=== PATIENT | male | born 1980 | race Asian ===

== ENCOUNTER 2016-06-10 09:21 | Emergency (ER) | payer MEDICAID ==
[~2016-06-10] VITALS: Wt 68.1 kg
[~2016-06-10 09:21] MED LIST: AUG875 PO; AZIT250T94 PO; D-ME118S6 PO; HYDR-2086 PO; IBUP-1542 PO; IBUP800T25 PO; MAG-19 PO; OMEP20CA9 PO; PRED20TA PO; PROM5SYR2 PO
--- NOTE | 2016-06-10 10:58 | RADRPT ---
PROCEDURE: CT Head without. CLINICAL INDICATION: Headache. TECHNIQUE: The study was performed utilizing a multi-slice, multidetector CT scanner. Direct spira l 1 mm axial sections were obtained through the head without the use of intravenous contrast materia l. Coronal and sagittal reformations were obtained. The images were reviewed on a PACS workstation. RADIATION DOSE: CTDIvol: 44.7 mGyDLP: 720.2 mGy-cm COMPARISON: No prior studies are available for comparison. FINDINGS: There is no intracranial hemorrhage, extra-axial fluid collection, mass lesion, midline shift or hyd rocephalus. The ventricles, sulci and cisterns are within normal limits. The white matter is unrem arkable. The abdullahi-white matter differentiation is preserved. The basal cisterns are patent. The m idline structures are intact. The orbits, calvarium and extracranial soft tissues are normal in [place] earance. The visualized paranasal sinuses, mastoid air cells and middle ear cavities are normally ae rated. IMPRESSION: 1. No acute intracranial abnormality. No intracranial hemorrhage, extra-axial fluid collection, ma ss lesion or hydrocephalous. RPTAT: DD .Wolf Horne MD, MD Date Time Electronically viewed and signed by .Wolf Horne MD, on 06/10/2016 10:58 .S/
[2016-06-10] MEDS ORDERED: IBUP-1542 PO (11:10)
[2016-06-10] MEDS ORDERED: FIORICET PO (11:10)
--- NOTE | 2016-06-10 11:14 | ERD ---
ER Documentation Chief Complaint Date/Time DATE: 06/10/16 TIME: 11:12 Chief Complaint left side headache nontraumatic for the past 3 wks . HPI This 35-year-old male presents with a left-sided headache for last 3 weeks. Denies any history of trauma. Denies any visual changes, vomiting, weakness, bowel or bladder incontinence or any proceeding URIs or additional symptoms. Pain is intermittent and described as 4-10 and dull. There is no radiation. ROS All systems reviewed and are negative except as per history of present illness. Medications Home Meds Active Scripts Acetamin/Butalbital/Caffeine* (Fioricet*) [id number] Tab, 1 TAB PO Q6H Y for PAIN, #14 TAB Prov:VITA ELLIOTT MD 06/10/16 Ibuprofen* (Motrin*) 600 Mg Tab, 600 MG PO Q6, #20 TAB Prov:VITA ELLIOTT MD 06/10/16 Ibuprofen* (Ibuprofen*) 800 Mg Tablet, 800 MG PO Q6H Y for PAIN, #30 TAB Prov:RIGO CELIS PA-C 01/07/16 Promethazine HCl/Codeine (Prometh-Codein 6.25-10 mg/5 ml) 5 Ml Syrup, 5 ML PO Q6 , #60 Prov:RIGO CELIS PA-C 01/07/16 Omeprazole* (Prilosec*) 20 Mg Capsule.dr, 20 MG PO DAILY, #30 CAP Prov:REINIER RAMOS NP 12/12/15 Magaldrate/Simethicone* (Mylanta*) 355 Ml Susp, 30 ML PO QID Y for GASTROINTESTINAL UPSET, #1 BOTTLE Prov:REINIER RAMOS NP 12/12/15 Ibuprofen* (Ibuprofen*) 600 Mg Tablet, 600 MG PO Q6, #14 TAB Prov:VITA ELLIOTT MD 09/24/15 Azithromycin* (Zithromax*) 250 Mg Tablet, 250 MG PO .ZPACK DIRECTED, #6 TAB TAKE 500 MG (2 TABS) THE FIRST DAY THEN 250 MG (1 TAB) DAYS 2-5 Prov:VITA ELLIOTT MD 09/24/15 Prednisone* (Prednisone*) 20 Mg Tab, 40 MG PO DAILY for 4 Days, TAB Prov:VITA ELLIOTT MD 09/24/15 Dextromethorphan Hb-Promethazine Hcl (Promethazine DM Syrup) 180 Ml Syrup, 5 ML PO Q6H Y for COUGH, #6 OZ Prov:VITA ELLIOTT MD 07/17/15 Ibuprofen* (Motrin*) 600 Mg Tab, 600 MG PO Q6, #14 TAB Prov:VITA ELLIOTT MD 07/17/15 Amoxicillin-Clavulanate K* (Augmentin*) 875 Mg Tab, 875 MG PO BID for 7 Days, TAB Prov:ANIYAH CASTELLANOS PA-C 06/11/15 Reported Medications Hydrocodone Bit-Acetaminophen* (Vicodin*) 5-300 Tab, PO Q4H Y for PAIN, TAB 01/28/14 Allergies Allergies: Coded Allergies: No Known Allergy (Unverified , 01/07/16) PMhx/Soc History of Surgery: No Anesthesia Reaction: No Hx Neurological Disorder: No Hx Respiratory Disorders: No Hx Cardiac Disorders: No Hx Psychiatric Problems: No Hx Miscellaneous Medical Probl: No Hx Alcohol Use: Yes Hx Substance Use: No Hx Tobacco Use: No Smoking Status: Never smoker Physical Exam Vitals Vital Signs Date Time Temp Pulse Resp B/P Pulse Ox O2 Delivery O2 Flow Rate FiO2 06/10/16 09:23 98.8 87 20 140/78 100 Physical Exam Const: [] Alert, [id number] per Head: Atraumatic Eyes: Normal Conjunctiva ENT: Normal External Ears, Nose and Mouth. Neck: Full range of motion..~ No meningismus. Resp: Clear to auscultation bilaterally Cardio: Regular rate and rhythm, no murmurs Abd: Soft, non tender, non distended. Normal bowel sounds Skin: No petechiae or rashes Back: No midline or flank tenderness Ext: No cyanosis, or edema Neur: Awake and alert. Normal gait. Cranial nerves II through XII grossly intact. No appreciable focal neurologic deficits. Psych: Normal Mood and Affect Procedures/MDM Given the uncertain cause of the duration of headache without a previous history of headaches a CT brain was performed which is read as normal by the radiologist. Patient presents with left-sided headache of uncertain etiology. Signs or symptoms not consistent with meningitis, mass-effect, neurologic deficits, intracranial hemorrhage or ischemia. Patient will be treated with Fioricet and ibuprofen and instructions to follow-up with primary doctor return to the ER for new or worsening symptoms. The patient was stable with no new complaints during the ER course. Clinically, there is no current evidence to suggest meningitis, sepsis, acute abdomen, pneumonia, acute coronary syndrome, pulmonary embolism, or any other emergent condition appearing to require further evaluation or hospitalization. The patient should certainly return for any new or worsening symptoms per the aftercare instructions. They should otherwise follow-up with her primary care doctor for reevaluation this week. Departure Diagnosis: Primary Impression: Headache Headache type: unspecified Headache chronicity pattern: unspecified pattern Intractability: not intractable Qualified Code: R51 - Nonintractable headache, unspecified chronicity pattern, unspecified headache type Condition: Stable Patient Instructions: Headache, Unspecified Additional Instructions: CT normal today. See primary doctor for further evaluation or return for fevers , vomiting, new symptoms. VITA ELLIOTT MD Jun 10, 2016 11:14
== END 2016-06-10 11:15 | disposition home or self-care (01) ==
LOC: FTE 09:21
DX: R51 Headache (principal)
CPT/HCPCS: 70450; Z7502

== ENCOUNTER 2018-01-18 13:55 | Emergency (ER) | END 2018-01-18 17:11 | disposition left against medical advice (07) ==